=== PATIENT | male | born 1940 | race Caucasian/White ===

== ENCOUNTER 2016-12-02 06:23 | Observation (INO) | payer MEDICARE, BC ==
[2016-11-25 10:52] LABS: HEMATOCRIT 32.6 % (40.0-51.0); HEMOGLOBIN 10.3 g/dL (13.6-17.8)
[2016-11-25 11:01] LABS: CALCIUM, SERUM 8.8 MG/DL (8.5-10.4); CHLORIDE, SERUM 105 MMOL/L (96-112); CO2 (CARBON DIOXIDE) 28 MMOL/L (24-34); CREATININE 2.04 MG/DL (0.70-1.30); GFR AFRICAN AMERICAN 36 ML/MIN (>=60); GFR NON AFRICAN AMERICAN 31 ML/MIN (>=60); POTASSIUM, SERUM 4.3 MMOL/L (3.5-5.3); SODIUM, SERUM 144 MMOL/L (135-148)
[2016-11-25 11:02] LABS: BUN (BLOOD UREA NITROGEN) 29 MG/DL (6-23); GLUCOSE, SERUM 200 MG/DL (60-99)
--- NOTE | ~2016-12-02 | OP ---
Record Of Operation [facility] [address] [place]. [address] NAME: TONE COLE JR : 42 [place] [facility] [place] [id number] AGE: 76 ADM/REG DATE : 12/02/16 MR#: [id number] REPORT SERV DATE: 12/02/16 DICTATED BY: COLLEEN CASTRO DATE: 12/02/16 REPORT STATUS : Draft TRANSCRIBED BY: MODL DATE: 12/02/16 DATE OF PROCEDURE: 12/02/2016 SURGEON: Colleen Castro MD SOCIAL WORK ASSOCIATE: Enma. PREOPERATIVE DIANOSIS: POSTOPERATIVE DIAGNOSIS: PROCEDURE: Laparoscopic converted to open midline incisional ventral hernia repair with mesh. COMPLICATIONS: None. IV FLUIDS: 1.4 L of crystalloid. ESTIMATED BLOOD LOSS: 20 mL. SPECIMENS: Hernia sac which was sent for permanent to pathology. Mesh was a Ventralight 15 x 20 cm piece of mesh. FINDINGS: The patient had about a 5 x 6 hernia defect with fascia that was widely pulled back away from the midline, and could not be approximated. PROCEDURE IN DETAIL: Preoperatively, the patient was definitively identified in the holding area. It was confirmed that a signed consent was on chart. The patient was then transferred to the operating room, and placed supine on operating table with both arms tucked, and appropriate padding to all pressure points. After appropriate surgical pause, perioperative antibiotics, and general endotracheal anesthesia were administered by anesthesia team. The patient was prepped and draped in normal sterile fashion. We began with placing a 12 mm trocar in the left lateral abdomen using a Visiport technique after infusion of local anesthetic. This was successful. The abdomen was inspected and it was confirmed there was no intraabdominal injury, and see findings as mentioned above. Two additional 5 mm trocars were placed, one in the left lower quadrant, one in the left upper quadrant, both under direct visualization after infusion of local anesthetic. Eventually ended up placing a right lateral 5 mm trocars as well in the same fashion. The hernia was measured both externally and internally. I marked out the intended extent of the mesh with 5 cm of overlap on all sides. I then selected the above-mentioned mesh and after marking it superiorly and inferiorly with a marking pen. I placed four stay sutures at the four lateral aspect of it, and rolled it up, placing it through the 12-mm trocar into the abdomen without difficulty. It was unrolled easily and placed in good position. Four stab incisions were created in appropriate locations, and the suture passing device was used to grasp the Prolene sutures, and bring them out through the abdominal wall which held the mesh in place. I used a Protac device to tack it, and after tacking about half of the mesh up, I Record Of Operation [place] [id number]. [place]. [id number] NAME: TONE COLE JR : 42 [place] [facility] [place] [id number] AGE: 76 ADM/REG DATE : 12/02/16 MR#: [id number] REPORT SERV DATE: 12/02/16 DICTATED BY: COLLEEN CASTRO DATE: 12/02/16 REPORT STATUS : Draft TRANSCRIBED BY: GLORIA DATE: 12/02/16 noticed that I could clearly see the writing where I had marked the pen. This was confusing because I did not believe that I had placed the mesh upside down with the exposed mesh toward the bowel, but I could not be sure. I therefore performed a limited midline incision and exteriorized the lateral aspect of the mesh that had not been tacked yet. I confirmed that it was actually in the correct location. The new Ventralight mesh was so light weight that the marking could clearly be seen through it. I placed a few open 2-0 Prolene sutures to hold the mesh in place laterally and then we closed the limited midline incision after excising as much of the hernia sac as possible. I briefly considered trying to close the fascia, but it was so lateral that this would put extreme tension on the abdominal wall. I therefore gave up on that idea and closed the dermis, and a small amount of underlying residual hernia sac in two layers of 3-0 Vicryl interrupted buried dermal sutures. The skin was then closed with running 4-0 Monocryl. We reinsufflated the abdomen and used a Protac device to finish tacking the mesh down circumferentially. I examined it several times and confirmed that there were tacks less than a centimeter in width all the way around circumferentially. The mesh was in very good position, we were very happy with this. Hemostasis was verified. Using the suture passing device, I placed three interrupted Vicryl sutures through the fascia at the 12-mm trocar site which was then air tight. The other trocars were removed under direct visualization and the abdomen was desufflated as much as possible. The skin of all incisions was closed with 4-0 Monocryl followed by Dermabond. MARGARITON/BETOL Colleen Castro MD / [id number] CC: MD PATSY Martinez LISA L
[~2016-12-02 06:23] MED LIST: ACIDOPHILU2 PO; ACTOS45 PO; AMARYL4 PO; AMOXIL PO; ASA5GR PO; ASAB PO; AUG500 PO; BACDS PO; BACTRIM PO; BILBERRY500 MG PO; BISR PR; BL CHROMIUM200 MCG OR; BUM1 PO; BUM2 PO; CO Q-10200 MG PO; CORDARONE PO; COREG12 PO; COREG3 PO; COREG6 PO; COUMADIN7.5 MG PO; CRESTOR20 MG PO; CRESTOR40 MG PO; EFFIENT10 PO; ELIQUIS 2.5 MG2.5 MG PO; ELIQUIS 5 MG TAB5 MG PO; FERROUS SULF325 M1 PO; FLOMAX4 PO; FOLIC ACID; FOLIC ACID800 MCG PO; FOLIC PO; GLUCOPHAGE1000 MG PO; GLUCOSE GEL PO; HUMALOG SC; HYDROCHLOROT25 MG PO; IMDUR30 PO; IMDUR60 PO; INSNOVR SC; JANTOVEN10 MG PO; KLOR-CON M2020 MEQ PO; L40 PO; L80 PO; LANTUS SC; LANTUSCART SC; LEVOTHYROXIN125 MCG PO; LEVOTHYROXIN25 MCG PO; LEVOTHYROXIN50 MCG PO; LEVOTHYROXIN75 MCG PO; LISINOPRIL40 MG PO; LOFIBRA134 MG PO; LOP100 PO; LOP50 PO; MAGNEBIND PO; METHOC500B PO; METOPROLOL PO; MIRALAXPKT PO; MYCOSCROI TOP; NATURA2 OPH; NITROGLYCERIN; NITROQUICK0.4 MG SL; NITROSTAT0.4 MG SL; NORCO1 TA1 PO; NORV5 PO; NOVOLOG PEN; NOVOLOG SC; NOVOPEN SC; NTG150 SL; OCUVITE PO; OPTIVITE PO; PACERONE100 MG PO; PLAVIX PO; PRILOSEC40 MG PO; PRIN10 PO; PRIN20 PO; PROAIR HFA INH; PROTONIX PO; PROVENTSOL INH; ROCEPHIN2 G2 IM; SAW PALMETTO; SAW PALMETTO PO; TOPXL100 PO; TOPXL50 PO; ULTRAM50 PO; VANCOCIN HCL125 MG PO; VITC500 PO; ZESTRIL20 MG PO; ZESTRIL40 MG PO; ZINC GLUCON50 MG PO; ZINC220C PO; [UNRECOGNIZED DRUG - OTHER] PO
[2016-12-03] MEDS ORDERED: BACTRONASA NAS (11:35)
[2016-12-03] MEDS ORDERED: OXYCOD PO (11:36)
== END 2016-12-03 16:19 | disposition home or self-care (01) ==
LOC: SDC 06:23 → 5SO 14:29
PROVIDERS: Surgery
PROC: 0WUF0JZ Supplement Abdominal Wall with Synthetic Substitute, Open Approach (ICD-10-PCS; principal; 2016-12-02 07:45)
DX: K43.2 Incisional hernia without obstruction or gangrene (principal); E11.22 Type 2 diabetes mellitus with diabetic chronic kidney disease; I12.9 Hypertensive chronic kidney disease with stage 1 through stage 4 chronic kidney disease, or unspecified chronic kidney disease; N18.9 Chronic kidney disease, unspecified; I48.91 Unspecified atrial fibrillation; E78.5 Hyperlipidemia, unspecified; I25.10 Atherosclerotic heart disease of native coronary artery without angina pectoris; F17.210 Nicotine dependence, cigarettes, uncomplicated; E11.319 Type 2 diabetes mellitus with unspecified diabetic retinopathy without macular edema; E78.00 Pure hypercholesterolemia, unspecified; I25.2 Old myocardial infarction; E11.40 Type 2 diabetes mellitus with diabetic neuropathy, unspecified; Z53.31 Laparoscopic surgical procedure converted to open procedure; Z98.890 Other specified postprocedural states; Z79.82 Long term (current) use of aspirin; Z79.02 Long term (current) use of antithrombotics/antiplatelets; Z79.899 Other long term (current) drug therapy; Z88.8 Allergy status to other drugs, medicaments and biological substances; Z87.891 Personal history of nicotine dependence; Z83.3 Family history of diabetes mellitus
CPT/HCPCS: 80048; 82962; 85014; 85018; 87641; 88302; 93005; 96372; 96374; A9270-GY; C1781; G0378; J0690; J1885; J2250; J2710; J2795; J3010; J3370